=== PATIENT | female | born 1970 | race Hispanic/Latino ===

== ENCOUNTER 2025-01-24 01:26 | Observation (INO) | payer BC ==
[2025-01-24] MEDS ORDERED: Ondansetron PF 4 MG/2 ML Vial IVP PRN (04:48)
[2025-01-24] MEDS ORDERED: Guaifenesin DM 100-10/5 ML UDCUP PO PRN (04:48)
[2025-01-24] MEDS ORDERED: Senokot S 8.6-50 MG TAB PO PRN (04:48)
[2025-01-24] MEDS ORDERED: Calcium Carbonate 500 MG ChewTAB PO PRN (04:48)
[2025-01-24] MEDS ORDERED: Acetaminophen 325 MG TAB PO PRN (04:48)
[2025-01-24] MEDS ORDERED: Melatonin 3 MG TAB PO PRN (04:48)
[2025-01-24 05:10] VITALS: BMI 25.6
[2025-01-24 05:28] LABS: Cardiac Risk 6.0 (Less than 4.5); Cholesterol 244.0 mg/dl (< 200 Desired); HDL Cholesterol 41.0 mg/dL (>60 Neg Risk); LDL Cholesterol, Calculated 161.0 mg/dL; Triglycerides 208.0 mg/dL (Less than 150)
[2025-01-24] MEDS: valACYclovir 500 MG TAB PO SCH (05:35)
[2025-01-24] MEDS: predniSONE 20 MG TAB PO SCH (08:14)
[2025-01-24 12:32] VITALS: BP 145/81; TEMP 99.3
== END 2025-01-24 13:15 | disposition home or self-care (01) ==
LOC: CSHTELE 04:09
PROVIDERS: ADMIT Student in an Organized Health Care Education/Training Program; ATTEND Internal Medicine
DX: G51.0 Bell's palsy (principal); R03.0 Elevated blood-pressure reading, without diagnosis of hypertension; E78.5 Hyperlipidemia, unspecified; E03.9 Hypothyroidism, unspecified; R73.9 Hyperglycemia, unspecified; Z79.890 Hormone replacement therapy
CPT/HCPCS: 36415; 70551; 80061; 83036; J7120; J7512